=== PATIENT | male | born 1955 | race Caucasian/White ===

== ENCOUNTER 2024-02-04 11:29 | Outpatient (CLI) | payer BC, MEDICARE, SELFPAY | END 2024-02-04 11:30 | disposition home or self-care (01) | LOC: LKVREF 11:30 | PROVIDERS: Visit Provider Emergency Medicine | DX: M54.50 Low back pain, unspecified (principal) | CPT/HCPCS: 86140 ==

== ENCOUNTER 2024-02-12 12:35 | Outpatient (CLI) | payer BC, MEDICARE, SELFPAY ==
--- NOTE | 2024-02-12 13:00 | CRLHL7_ITS ---
For Patients: As a result of the Century Cures Act, medical imaging exams and procedure reports are released immediately into your electronic medical record. You may view this report before your referring provider. If you have questions, please contact your health care provider. INDICATION: Low back pain. TECHNIQUE: Noncontrast sagittal and axial T1, T2, and sagittal STIR sequences are provided. No comparisons. FINDINGS: Interval development of a Schmorl`s node involving the superior L3 vertebral body. There is mild edema surrounding the Schmorl`s node suggesting that this may be reactive in nature. The overall stature, alignment and intrinsic marrow signal within the remainder of the lumbar spine is within normal limits. Conus is normal. T12-L1, L1-2: Unremarkable. L2-3: Minor circumferential disc bulge results in no central canal or foraminal narrowing. L3-4: Minor circumferential disc bulge that is slightly eccentric to the left results in worsening mild to moderate left foraminal narrowing with contact of the exiting left L3 nerve root laterally. No central canal or right foraminal narrowing. L4-5: Mild broad-based posterior disc bulge that is eccentric to the right results in stable mild right and no left foraminal narrowing. Slightly worse moderate bilateral lateral recess narrowing with compression of the traversing L5 nerve roots. Central canal is patent. L5-S1: Unremarkable. IMPRESSION: 1. Interval development of a reactive Schmorl`s node involving the superior L3 vertebral body. 2. Worsening mild to moderate left L3-4 foraminal narrowing with contact of the exiting left L3 nerve root laterally. 3. Worsening moderate bilateral lateral recess narrowing at L4-5 with stable mild right foraminal narrowing. Dictated by Greg Mayes MD @ 02/14/2024 7:29:40 PM (Electronically Signed)
== END 2024-02-12 12:36 | disposition home or self-care (01) ==
LOC: MRI 12:38
PROVIDERS: PCP Emergency Medicine; Visit Provider Emergency Medicine
DX: M54.50 Low back pain, unspecified (principal); M51.46 Schmorl's nodes, lumbar region; M51.26 Other intervertebral disc displacement, lumbar region
CPT/HCPCS: 72148